=== PATIENT | female | born 1970 | race Two or more races ===

== ENCOUNTER 2025-06-09 14:48 | Emergency (ER) | payer OTHER, SELFPAY ==
[~2025-06-09] VITALS: Ht 160 cm; Wt 80.4 kg
--- NOTE | 2025-06-09 15:10 | ED.PDOC ---
HPI (NEURO) HPI Comments This is a 54 year old female presenting to the ED with chief complaint of headache. Patient reports that she has been experiencing a right sided posterior headache since Monday with associated right sided facial weakness starting today. 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 Patient denies any numbness, tingling, chest pain, SOB, dizziness, syncope, or extremity weakness. Chief Complaint: Headache Time Seen by MD: 15:06 Reviewed Notes: Nurses Notes, Medications, Allergies Information Source: Patient Mode of Arrival: Ambulatory Severity: Moderate Headache Severity: Moderate Timing: Days Duration: Since onset Prehospital treatment: None Headache Quality: Sharp Headache Location: Occipital Weakness Location: Facial Onset: At rest Circumstances: Spontaneous Symptoms: Weakness Associated Signs and Symptoms: Headache Past Medical History PAST MEDICAL HISTORY: HTN, Kidney Stones Past Medical History (Other): Warriormine Palsy x5 years ago Surgical History: Surgical History (Other): Gastric bypass, kidney stone surgery ORCHARDIST History: Denies all ORCHARDIST Hx Family History Family History: Reviewed,noncontributory to illness, Family hx of DM Social History Smoker: Non-Smoker Alcohol: Denies ETOH Use Drugs: Denies Drug Use Lives In: Home Constitutional: denies: chills, diaphoresis, fatigue, fever, malaise, sweats, weakness, others EENTM: denies: blurred vision, double vision, ear bleeding, ear discharge, ear drainage, ear pain, ear ringing, eye pain, eye redness, hearing loss, mouth pain, mouth swelling, nasal discharge, nose bleeding, nose congestion, nose pain, photophobia, tearing, throat pain, throat swelling, voice changes, others Respiratory: denies: cough, hemoptysis, orthopnea, SOB at rest, shortness of breath, SOB with excertion, stridor, wheezing, others Cardiovascular: denies: chest pain, dizzy spells, diaphoresis, Dyspnea on exertion, edema, irregular heart beat, left arm pain, lightheadedness, palpitations, PND, syncope, others Gastrointestinal: denies: abdomen distended, abdominal pain, blood streaked bowels, constipated, diarrhea, dysphagia, difficulty swallowing, hematemesis, melena, nausea, poor appetite, poor fluid intake, rectal bleeding, rectal pain, vomiting, others Genitourinary: denies: abnormal vagina bleeding, burning, dyspareunia, dysuria, flank pain, frequency, hematuria, incontinence, pain, , vagina discharge, urgency, others Neurological: reports: headache, others (Facial weakness); denies: dizziness, fainting, left sided numbness, left sided weakness, numbness, paresthesia, pre- existing deficit, right sided numbness, right sided weakness, seizure, speech problems, tingling, tremors, weakness Musculoskeletal: denies: back pain, gout, joint pain, joint swelling, muscle pain, muscle stiffness, neck pain, others Integumetry: denies: bruises, change in color, change in hair/nails, dryness, laceration, lesions, lumps, rash, wounds, others Allergic/Immunocompromised: denies: Difficulty Healing, Frequent Infections, Hives, Itching, others Hematologic/Lymphatic: denies: anemia, blood clots, easy bleeding, easy bruising, swollen glands, others Endocrine: denies: excessive hunger, excessive sweating, excessive thirst, excessive urination, flushing, intolerance to cold, intolerance to heat, unexplained weight gain, unexplained weight loss, others Psychiatric: denies: anxiety, bipolar disorder, depression, hopeless, panic disorder, schizophrenia, sleepless, suicidal, others All Other Systems: Reviewed and Negative Physical Exam General Appearance: No Apparent Distress HEENT: Pharynx Normal, TMs Normal, Other (Right facial droop) Neck: Full Range of Motion, Non-Tender, Normal, Normal Inspection Respiratory: Chest Non-Tender, Lungs Clear, No Accessory Muscle Use, No Respiratory Distress, Normal Breath Sounds Cardiovascular: No Edema, No JVD, No Murmur, No Gallop, Normal Peripheral Pulses, Regular Rate/Rhythm Breast Exam: Deferred Gastrointestinal: No Organomegaly, Non Tender, No Pulsatile Mass, Normal Bowel Sounds, Soft Genitalia: Deferred Pelvic: Deferred Rectal: Deferred Extremities: No calf tenderness, Normal capillary refill, Normal inspection, Normal range of motion, Non-tender, No pedal edema Musculoskeletal : Apperance: Normal Neurologic: Alert, Normal Affect, Normal Mood, No Sensory Deficits, Other (Right facial droop) Cerebellar Function: Normal Reflexes: Normal Skin: Dry, Normal Color, Warm Lymphatic: No Adenopathy EKG EKG : Pulse Rate (adult): 82 [place]: Normal Cardiac Rhythm: NSR Block: None Hypertrophy: None ST: Normal Was a procedure done? Was a procedure done?: No Differential Diagnosis (SZ) Seizure: CVA/TIA, Idiopathic, Syncope, Other (Arreaga's palsy) X-Ray, Labs, Meds, VS Vital Signs Date Time Temp Pulse Resp B/P (MAP) Pulse Ox O2 Delivery O2 Flow Rate FiO2 06/09/25 16:02 97.8 73 20 142/97 (112) 97 97.8 06/09/25 16:02 Room Air* 0 21 06/09/25 15:10 82 06/09/25 14:49 97.5 89 15 151/96 98 97.5 Lab Test 06/09/25 14:58 Range/Units POC Glucose 97 70-106 mg/dl Current Medications Medications (Trade) Dose Ordered Sig/Cristy Route Start Time Stop Time Status Last Admin Methylprednisolone Sodium Succinate (Solu Medrol) 125 mg ONCE ONCE IM 06/09/25 15:15 06/09/25 15:16 DC 06/09/25 16:13 CT Head indicates: 1. No acute territorial infarct, intracranial hemorrhage, or mass effect. 2. If clinical symptoms persist, MRI may be beneficial in further evaluation. At this time, the patient was given an injection of Solu-Medrol 125 mg IM The patient was also given a Medrol Dosepak The patient will follow up with the primary care doctor The patient will return to the emergency department's the condition worsens. Images Reviewed?: Images reviewed and evaluated by me Time of 1ST Reevaluation: 16:46 Reevaluation 1ST: Unchanged Patient Education/Counseling: Diagnosis, Treatment, Prognosis, Need For Follow Up Family Education/Counseling: No Family Present Departure 1 Departure Time of Disposition: 16:46 Impression: Primary Impression: Arreaga's palsy Disposition: 01 HOME / SELF CARE / HOMELESS Condition: Fair e-Prescriptions Methylprednisolone (Medrol Dosepak) 4 Mg Zander 4 MG PO UD, #21 TAB UAD Prov: MAMI ELLINGTON MD 06/09/25 Discharged With: Self Critical Care Note Critical Care Time?: No Stability Stability form required: No Heart Score Heart Score: Heart Score Response (Comments) Value History N/A 0 EKG N/A 0 Age N/A 0 Risk Factors N/A 0 Troponin N/A 0 Total 0 I personally scribed for MAMI ELLINGTON MD ([email or web address]) on 06/09/25 at 15:10. Soniya ctronically submitted by Ge Villarreal ([email or web address]). I personally scribed for MAMI ELLINGTON MD ([email or web address]) on 06/09/25 at 15:57. E lectronically submitted by Ge Villarreal ([email or web address]). MAMI ELLINGTON MD Jun 09, 2025 15:10
--- NOTE | 2025-06-09 15:45 | DVH ---
EXAM: CT HEAD WITHOUT CONTRAST INDICATION: FUCHS TECHNIQUE: CT of the head without intravenous contrast. Radiation Dose : 1. Head: CT Dose: CTDI volume is 53.0 mGy. Dose-length product is 1045.0 mGy*cm The dose indicators for CT are the volume Computed Tomography (CT) Dose Index (CTDIvol) and the Dose Length Product (DLP), and are measured in units of mGy and mGy-cm, respectively. These indicators are not patient dose, but values generated from the CT scanner acquisition factors. The report includes radiation exposure data for exposures received during this examination. COMPARISON: CT BRAIN on DOS: 03/20/23 FINDINGS: Evaluation is degraded by motion artifact. No acute territorial infarct, intracranial hemorrhage, or mass effect. The ventricles and sulci are within normal limits. Patchy periventricular and subcortical white matter hypoattenuation is nonspecific but may be related to small vessel ischemic disease. The orbits are normal. The minimal mucosal thickening within the right maxillary antrum and left frontal sinus. The paranasal sinuses and mastoid air cells are otherwise clear. The osseous structures are unremarkable. IMPRESSION: 1. No acute territorial infarct, intracranial hemorrhage, or mass effect. 2. If clinical symptoms persist, MRI may be beneficial in further evaluation. Radiation optimization: All CT scans at this facility use at least one of these dose optimization techniques: automated exposure control mA and/or kV adjustment per patient size (includes targeted exams where dose is matched to clinical indication) or iterative reconstruction.
[2025-06-09] MEDS: methylPREDNISolone SOD SUCC 125 MG/2 ML VL IM ONE (16:13)
[2025-06-09] MEDS ORDERED: METH4PAK PO (16:14)
[2025-06-09 17:07] VITALS: BP 159/69; PULSE 71; RESP 20; TEMP 98; O2SAT 99
--- NOTE | 2025-06-10 06:30 | ECG ---
[facility] Test Date: 2025-06-09 Test Time: 15:00:43 Pat Name: TORI FOSTER Department: ED Room: Gender: F Housekeeper/Laundry Assistant: SUSAN : 1970 Requested By: MAMI ELLINGTON Order Number: [id number] Reading MD: Measurements Intervals [place] Rate: 82 P: 35 [place]: 149 QRS: 8 QRSD: 85 T: 43 QT: 362 QTc: 423 Interpretive Statements Sinus rhythm Low voltage, precordial leads Please click the below link to view image of tracing.
== END 2025-06-09 17:13 | disposition home or self-care (01) ==
LOC: ER 14:48
DX: G51.0 Bell's palsy (principal); I10 Essential (primary) hypertension; Z79.899 Other long term (current) drug therapy
CPT/HCPCS: 70450; 82947; 93005; 96372; 99285; J2919; 82962